=== PATIENT | female | born 1985 | race Caucasian/White ===

== ENCOUNTER → 2019-10-13 09:26 | Outpatient (CLI) | payer MEDICAID ==
[~2019-10-13 09:26] MED LIST: MOTRIN600 MG PO; PERCOCET 5/3251 TA1 PO; PRENATAL COMPLE1 TAB PO
== END | disposition home or self-care (01) ==
LOC: D.US 09:26
PROVIDERS: ATTEND General Practice
DX: R10.13 Epigastric pain (principal); R79.89 Other specified abnormal findings of blood chemistry; R11.2 Nausea with vomiting, unspecified